=== PATIENT | female | born 1945 | race Caucasian/White ===

== ENCOUNTER 2019-04-24 19:24 | Inpatient (IN) | payer OTHER ==
[~2019-04-24] VITALS: Ht 175.3 cm; Wt 60.8 kg
[2019-04-24] MEDS ORDERED: ALLEGRA ALLERG180 MG PO (22:54)
[2019-04-25 04:06] VITALS: BP 152/85
--- NOTE | 2019-04-25 05:46 | NUR ---
ARRIVED IN FACILITY @ 1900, TRANSFERRED TO [facility]. VS 152/85 88 18 99.1 95% 5'9" WIEIGH 144.6 POUNDS. FSBS 355 @ 1999, FSBS 266 @ 0300, 30 u OF LANTUS PROVIDED. FSBS 187 @ 0430. L BKA AND PROTHETIC DEVICE IN PLACE. R LOWER EXTREMITY HAS A LEG BRACE AND R FOOT HAS A LESION 1CM X 1 CM COVERED WITH A DRESSING. REPORTS PHANTOM PAIN IN THE LEFT LOWER EXTREMITY. RIGHT TOE NAIL IS MISSHAPEN. R FOOT IS CONTRACTED. PT AND OT CONSULT ENTERED. ORIENTED TO SELF ONLY. CONFUSED AND FORGETFUL, SHORT TERM MEMORY ABSENT. HAS DIFFICULTY CONSTRUCTING A SENTENCE. FLAT AFFECT AND SAD COUNTENANCE NOTED. INCONTINENT OF BLADDER. NO BM SINCE ARRIVAL. PT REPORTS THAT SHE CAN AMBULATE WITH A WALKER. SHE DOES NOT APPEAR TO HAVE ANY MORE STANDING ABILITY EXCEPT TO BEAR PARTIAL WEIGHT TO TRANSFER X 1 OR X 2 ASSIST. BED IN LOW POSITION, BED ALARM SET, WILL CONTINUE TO MONITOR Q 12 MINUTES FOR PATIENT SAFETY.
[2019-04-25 06:01] LABS: CALCIUM 8.9 mg/dL (8.5-10.1); CREATININE 1.8 mg/dL (0.6-1.0); POTASSIUM 3.8 mmol/L (3.5-5.1)
[2019-04-25 07:23] VITALS: BP 151/83
--- NOTE | 2019-04-25 09:16 | NUR ---
RD consult received for pt with dm, no dentures, no teeth, and possible wt loss. Also has right foot wound, and left BKA-wound care to see. Pt with confused responses, unable to answer questions. Breakfast meal tray observed and pt ate 100% of large meal and all of liquids. On mech altered ground diet-will also add carb control as BG 266. Unsure of any wt changes, appears well nourished. Need to weigh each week with consistency of prostetic on or off. On vitamin C and MVI supplementation. Low nutrition risk
--- NOTE | 2019-04-25 13:30 | NUR ---
0710: Report rec from noc shift, care assumed.
--- NOTE | 2019-04-25 14:46 | NUR ---
07: report rec from noc shift, care assumed. [id number]: Transfers from bed to w/c with 2 staff, prosthesis in place to Lt lower leg, brace intact to Rt ankle.foot. Oriented to name only, occasionally recalls events and of living in LTC. Minimal self propel noted while in w/c, assisted with mobilization. Refused a.m. meal, blood glucose 179. Takes meds whole w/o difficulty. 1200: BUN 50, Creat.1.8, results called to Dr. Santana by Dr. Haley. New orders rec. 1315: Vascular Access Team notified for need for IV start. 1320: #22 gauge initiated to Rt hand with 1 stick by vascular RN. Pt michelle well, cooperative with procedure. 1400: NS initiated to Rt hand IV site, rate @ 250ml/hr via pump over 2 hrs. Pt assisted to recliner in common area for comfort and close observation. PO water 260cc given to pt, po fluids encouraged.
[2019-04-25 20:23] VITALS: BP 96/68
--- NOTE | 2019-04-25 23:00 | NUR ---
Care assumed of patient at 1915: Patient seated in day room at start of shift. Patient impulsive and attempting to transfer self from w/c to dining room chair independently. Chair alarm in place. Patient alert and oriented to person, confusion and forgetfulness noted. Patient has prosthesis to left lower extremity and brace to right lower extremity. Patient assisted with max assist x2 for transfers for safety. Patient ate 100% snack. Patient having difficulty focusing and having a conversation. Disorganized thoughts. Patient provided HS medication. Patient educated on HS medication several times while showing her each pill. Patient easily forgot and would ask over and over again. Patient then stated that she needed to speak with her before taking the medication. Patient kept pointing to the door saying he would be walking in the window any minute. Patient re-orientated to current time and location. Patient did accept her HS insulin dose but declined all other medications. Patient has involuntary movements noted to her head and neck. Unknown if she is restless or if they are unintentional. Denies pain or discomfort at this time. Patient does appear sad and flat. Patient assisted to bed where she sat in bed and read for a few minutes. Patient fell asleep while reading and has been resting quietly since.
[2019-04-26 05:42] LABS: ALBUMIN 2.8 g/dL (3.4-5.0); CALCIUM 8.8 mg/dL (8.5-10.1); CREATININE 1.6 mg/dL (0.6-1.0); PHOSPHORUS 4.4 mg/dL (2.5-4.9); POTASSIUM 4.2 mmol/L (3.5-5.1)
[2019-04-26 09:05] VITALS: BP 120/67
--- NOTE | 2019-04-26 10:32 | H ---
[facility] [place] [address] HISTORY AND PHYSICAL Name: DARLING MAYERS Room #: 522B-B ADM IN M.R.#: [id number] Admission: 04/24/19 ������������������ Attend Phys: Twin Haley DO Discharge: ������������������ Date of : 47 Report #: [id number] THIS REPORT FOR: //name// CC: Twin Haley [facility] physician/PCP DATE OF SERVICE: 04/25/2019 INPATIENT PSYCHIATRIC EVALUATION ATTENDING PHYSICIAN: Twin Haley DO TRANSPORTATION AIDE: Susy Burgos APRN, the hospitalist service. REASON FOR ADMISSION: Reported confusion, agitation, perhaps taking some swings at staff at the [facility]. SOURCES OF INFORMATION: Interview with the patient and interview with her daughter, Yanet, and family friend, Bharathi. Chart reviewed. HISTORY OF PRESENT ILLNESS: This is a 73-year-old female who is fairly disabled. She has a left-sided prosthesis. She has had a heart attack. She has had difficult to control diabetes. The patient was a direct admit from the [facility], which is in [place]. There was some information from her [place] [facility] that she over the last couple of days had been agitated, confused, difficult to care for and they had ruled out urinary tract infections, so there was a concern of an underlying dementia and obtaining behavioral control for that. Thus, she is here. 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 She lives at [facility] with her there in assisted living. They have been there for some time. She reported to the medical language specialist she was frightened by the weather and felt restless. ALLERGIES: Her allergies are numerous, mainly ANTIBIOTICS, AMOXICILLIN, CIPRO, CLAVULANIC ACID, ERYTHROMYCIN, EZETIMIBE, FENOFIBRATE, LEVOFLOXACIN, PRAVASTATIN, SIMVASTATIN, HMG-COA REDUCTASE INHIBITORS, WHICH WOULD INCLUDE ALL OTHER STATINS AND TETRACYCLINE. MEDICAL HISTORY: Includes a heart attack, I believe she has had a stent placement. She also has an AICD, but I do not believe a pacemaker. REVIEW OF SYSTEMS: From the hospitalist's: CONSTITUTIONAL: Denies. RESPIRATORY: Denies. CARDIOVASCULAR: Denies. GASTROINTESTINAL: Denies. [address] [address] HISTORY AND PHYSICAL Name: DARLING MAYERS Room #: 522B-B ADM IN M.R.#: [id number] Admission: 04/24/19 ������������������ Attend Phys: Twin Haley DO Discharge: ������������������ Date of : 47 Report #: [id number] GENITOURINARY: Denies. MUSCULOSKELETAL: Denies. SKIN: Denies. NEUROPSYCH: As above. Otherwise, negative on 10-point review of systems. Significant findings were 1+ dorsalis pedis pulse on the right. She has had a left BKA. Otherwise normal physical exam. Her medical problems include diabetes mellitus type 2; hyperlipidemia; hypertension; CKD stage 3; vitamin D deficiency; chronic pain syndrome, on Ultram and Neurontin; left BKA, status post prosthesis due to complications of peripheral vascular disease from her diabetes. She is on peptic prophylaxis. MEDICATIONS: While in the hospital; insulin glargine 30 units subcutaneous at bedtime; ezetimibe 10 mg p.o. at bedtime; senna-S 2 tabs p.o. b.i.d.; multivitamin p.o. daily; loratadine 10 mg p.o. daily; lisinopril 10 mg p.o. daily; gabapentin 100 mg p.o. at 9:00, 3:00 and 9:00 p.m.; duloxetine 60 mg p.o. daily; fish oil 1000 mg 3 times a day with meals; bupropion 150 mg p.o. daily; aspirin 81 mg p.o. daily; vitamin C 500 mg p.o. daily; insulin, which is 7 units a.c. She had a blood sugar of 60 right before lunch today; so at the moment, I am not sure of the hospitalist instructions to nurse about that. She is on house PRNs, tramadol 50 mg p.o. q. 6 p.r.n. and I put her on scheduled Tylenol 650 t.i.d. SOCIAL HISTORY: She denies smoking, alcohol or illicit drugs. VITAL SIGNS: Today; temperature 36.7, pulse 80, respirations 14, BP 151/83. DIAGNOSTIC DATA: She had an EKG done from the [place] [facility] showed atrial fibrillation, old inferior infarct. She had a ventricular rate of 86, QRS of 76, QTC of 459. LABORATORY DATA: The labs I have from [place] [facility] are as follows: Urinalysis was positive on 04/16, they started IM Rocephin. On 04/22; sodium 138, potassium 5.2, chloride 101, bicarbonate 24.6, anion gap 18, osmolality 290, calcium 8.9, glucose 290, BUN 48, creatinine 1.7, protein 5.6, albumin 3.5, globulin 2.1, ____, alkaline phosphatase 186, ALT 42, AST 30, total bilirubin 0.2. CBC: White count 9.6, H and H 10.7 and 32.5, platelet count 339. She did have absolute neutrophil count, which was high at 7.30. I found some notes on 04/24, she continues to be delirious, confused with hallucinations and incoherent verbalizations. She appeared to have worsened. Earlier on 04/24, she is very disorganized. She was pulling wastepaper ____ from basket before. Apparently, she pulled everything out of her closet and stuffed it in the basket. She had disorganized thinking. Resident was combative and refusing cares over the last two days in the morning, so it looks like that it dates back to early on the morning of 04/24. [facility] [address] [place] [address] HISTORY AND PHYSICAL Name: DARLING MAYERS Room #: [facility] ADM IN M.R.#: [id number] Admission: 04/24/19 ������������������ Attend Phys: Twin Haley DO Discharge: ������������������ Date of : 47 Report #: [id number] MENTAL STATUS EXAMINATION: This is a well-developed, slightly disheveled female appearing only stated age. Attention limited. Concentration limited. Speech normal rate. She was not oriented to day or date, but knew month or time after some prompting. No psychomotor agitation. No psychomotor retardation. Mood and affect congruent and euthymic. Denied SI or HI. Denied hopelessness, helplessness. Thought process is linear and goal directed. Memory not formally tested, but known to be impaired. Insight limited. Judgment fair to limited. Fund of knowledge below baseline at this point. FORMULATION: A 73-year-old female residing in an assisted living facility with suspected delirium on dementia, perhaps residual from urinary tract infection. PLAN: Continue medications as above. I think that it may not be a bad idea to get her on some scheduled Haldol early on and I would like to see how she does in the next few days, so we do not jump to overprescribing those psychotropic medications. Time spent on interview, review of records, coordination of care is at least 60 minutes. I did have the geriatric social work professor and authorized healthcare DPOA by the patient, her daughter, Yanet can function and that will likely need to be enacted. ESTIMATED LENGTH OF STAY: 10-14 days. STRENGTHS: Insured, has supportive family. WEAKNESSES: Multiple morbidities, advancing age, likely neurodegenerative disorder. ��������������������������������������������� <ELECTRONICALLY SIGNED> ���������������������������������������� By: Twin Haley DO ��������������������������������������������� 04/26/19 1032 [id number] Twin Haley DO /nt
--- NOTE | 2019-04-26 19:15 | NUR ---
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 PATIENT DISRUPTIVE AND TRYING TO MAKE ANNOUNCEMENTS AT BEGINNING OF MORNING GROUP. AROUND LUNCH PATIENT MORE WITHDRAWN. CARRYING AROUND AND HOLDING PROSTHESIS. PLACING PROSTHESIS ON TABLES AND LEAVING ROOM. PROSTHESIS PLACED IN LOCKER. PATIENT ACCEPTING MEDS AT DINNER. ATE 60% OF MEAL. REFUSED LUNCH TRAY. REMAINS CONFUSED. FALL PRECAUTIONS IN PLACE.
[2019-04-26 19:38] VITALS: BP 124/71
--- NOTE | 2019-04-26 22:28 | NUR ---
Care assumed of patient at 1915: Patient seated in day room at start of shift. Patient alert and oriented to person. Patient restless and irritable. Patient having rambling speech. Nonsensical speech at times. Has a suspicious, perplexed look. Difficulty following simple one step directions. Blood sugar 65 at start of shift. Patient showing no s/s of hypoglycemia. Patient provided orange juice and helen crackers with peanut butter. 30 minutes later, blood sugar 154. Patient requires max assist to dependent care x2 for transfers and toileting needs. Incontinent of bowel and bladder. Patient changed, mirian care provided, barrier cream applied. Patient provided one medication at a time during med pass. One medication presented, education provided, then patient took the medication. Patient becomes confused and paranoid when all medication are presented at once. Patient assisted to bed and was provided her book to read per her request. Patient fell asleep while reading and has been resting quietly.
[2019-04-27 09:31] VITALS: BP 142/74
[2019-04-27 11:35] VITALS: BP 142/74
--- NOTE | 2019-04-27 16:50 | NUR ---
PATIENT INAPPROPRIATELY INTERACTING WITH OTHER PATIENTS AND STAFF THIS MORNING. ATTEMPTING TO TELL STAFF WHAT THEY NEED TO DO, INSERTING SELF INTO CONVERSATION BETWEEN OTHER PATIENTS AND STAFF. APPROACHING OTHER PATIENTS AND TELLING THEM WHAT THEY NEED TO DO. EXHIBITING SIGNS OF VISUAL HALLUCINATIONS BY POINTING AND TALKING TO THINGS IN THE AIR, DENIES HALLUCINATIONS. OFTEN TALKING IN CIRCLES, UNABLE TO FOCUS ON ONE SUBJECT OR TASK. TAKING ITEMS FRO ANOTHER PATIENT AT BREAKFAST SUCH PILLOW AND BLANKET FROM CHAIR THAT OTHER PATIENT WAS USING. UNABLE TO REDIRECT WHERE SHE WAS AND HER ROLE. REFUSING MEDS UNTIL SHE SPOKE WITH HER RABIA OVER THE PHONE. AFTER LUNCH AND GROUPS PATIENT MORE COOPERATIVE. CONTINUES TO APPROACH OTHER PATIENTS AND INSTRUCT THEM TO WHAT THEY SHOULD BE DOING. MORE RE-DIRECTABLE AFTER GROUPS THIS AFTERNOON. PATIENT SON CALLED AND STATED THAT HE WOULD BE VISITING. DID NOT SHOW DURING VISITING HOURS. PATIENT VISIBLY SADDENED. NO FURTHER INAPPROPRIATE BEHAVIORS NOTED AT THIS TIME.
[2019-04-27 19:10] VITALS: BP 111/47
[2019-04-28 01:01] VITALS: BP 111/47
--- NOTE | 2019-04-28 04:49 | NUR ---
PT REMAINS CONFUSED AND INVASIVE TOWARD OTHER PATIENTS. REDIRECTABLE. AFTER EVENING SNACKS WENT TO ROOM. TOOK HS MEDS WITH GENTLE ENCOURAGEMENT. SLEPT WELL THROUGH THE NIGHT W/O INCIDENT.
[2019-04-28 07:30] VITALS: BP 128/69
[2019-04-28 08:09] VITALS: BP 128/69
--- NOTE | 2019-04-28 08:30 | NUR ---
PT SITTING WITH OTHER RESIDENTS HAVING CONFERSATIONS. PT TOOK MEDS WITHOUT ANY RESISTANCE. PT LUNGS CLEAR. PT DENIES ANY PAIN AT THIS TIME. PT EATING BREAKFAST.
--- NOTE | 2019-04-28 11:03 | NUR ---
WOUND CONSULT; THE PATIENT STATES SHE HAS HAD THIS WOUND SINCE 2001. THE PATIENT IS LUCID. NO S/S OF INFECTION, SACAT SEROUS DARAINAGE NOTED ON DRESSING. THE PATIENT USES AN OLD ORTHOTIC BOOT, CANNOT DETERMINE EFFICACY OF THIS. RECOMMENDATION; CLEANSE WITH NS/ OR WOUND CLEANSER, APPLY A FOAM DRESSING M/W/F PRN DISCUSSED WITH FABIO
--- NOTE | 2019-04-28 14:17 | NUR ---
HELPED PT TO BATHROOM. PT DIDN'T HAVE HER PROSTHETIC LEG. PT VERY SPASTIC WITH HER ACTIONS. PT HAD INCON. BRIEF AND VOIDED ALSO. DRESSED WOUND TO RT OUTER FOOT, APPEARS TO BE AN ULCER. PT WANTED TO TALK TO SOMEONE IN DINNING ROOM DURING DRESSING CHANGE. TOOK OFF PERSONAL SHOE AND PUT IN ROOM.
--- NOTE | 2019-04-28 15:01 | NUR ---
PT IN ROOM WITH GROUP. PT SITTING BACK AWAY FROM GROUP.
--- NOTE | 2019-04-28 16:07 | NUR ---
CIARRA met with family concerning memory care placement. Pt daughter Yanet mention that she would like her mother to continue there if the [facility] has a memory care unit. SW will contact the [facility] to see if memory care is option. CIARRA will follow-up with the family, and pt.
[2019-04-28 19:45] VITALS: BP 160/82
--- NOTE | 2019-04-28 22:56 | NUR ---
PATIENT IS COOPERATIVE TONITE. SHE HAS STAYED IN HER ROOM TO HERSELF. SHE HAS FLAT AFFECT. PHYSICAL ASSESSMENT DONE. SHE HAS L BKA THAT IS INTACT. SHE HAS THE SLEEVE OFF AND SAYS SHE DOES NOT WEAR IT ALL THE TIME. HER PROSTHESIS WAS PUT UP IN HER LOCKER D/T SHE WAS HOLDING IT IN HER ARMS IN THE DAYROOM INSTEAD OF WEARING IT. PATIENT'S RIGHT FOOT IS DEFORMED AND HAS AN ULCER WOUND ON IT THAT IS BEING TREATED BY WOUND CARE NURSE AND DRESSING CHANGES ARE MWF AND PRN. THERE IS NO DRAINAGE COMING FROM THE DRESSING THAT WAS CHANGED EARLIER TODAY. PATIENT IS A/[address]. HER GLUCOSE WAS 267 TONITE AND LANTUS 30 UNITS GIVEN TO PATIENT . PATIENT DID HAVE A SF SNACK AT HS. PATIENT DENIES PAIN. SHE DOES APPEAR A LITTLE PARANOID AND WAS RELUCTANT TO TAKE MEDS UNTIL SHE FELT COMFORTABLE THAT SHE WAS GETTING THE RIGHT ONES. PATIENT HAS BRIEF ON AND IS INCONTINENT AT NIGHT. BED ALARM ON AND BED IN LOW POSITION. WILL CONTINUE TO MONITOR.
--- NOTE | 2019-04-29 08:00 | NUR ---
PT NEEDED ASSISTANCE GETTING OUT OF BED. PT HAS RT FOOT DEFORMED AND BEARS WEIGHT ON THE SIDE. SMALL ULCER TO RT LATERAL SIDE OF FOOT. PT HAS PROSTHETIC TO LEFT BELOW KNEE. PT HAS BRUISING TO LATERAL SIDE OF LEFT STUMP. PT ORIENTED TO SELF. PT DENIES ANY PAIN AT THIS TIME. PT UP WITH ASSISTANCE X1-2 PERSON.
--- NOTE | 2019-04-29 13:04 | NUR ---
PT STATED SHE STILL FEELS DIZZY AND DIDN'T KNOW IF ITS THE MEDICATION. PT ALSO STATED SHE KNOWS SHE NEEDS SOMETHING FOR ANXIETY, BUT NOT TAKE THE MEDICATION SO FREQUENTLY.
--- NOTE | 2019-04-29 13:26 | EKG ---
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: DENISA : 1945 Requested By: Twin Haley Order Number: [id number] MD: Juan Bowen Measurements Intervals [place] Rate: 92 P: 45 IN: 167 QRS: -18 QRSD: 90 T: 31 QT: 353 QTc: 437 Interpretive Statements Sinus rhythm Borderline left axis deviation Abnormal R-wave progression, early transition No previous ECG available for comparison Electronically Signed On 04-29-2019 13:26:12 CDT by Juan Bowen [email or web address] ��������������������������������������������� <ELECTRONICALLY SIGNED> ���������������������������������������� By: Juan Bowen MD ��������������������������������������������� 04/29/19 1326 1146 1146 Juan Bowen MD /AMY
[2019-04-29 19:17] VITALS: BP 146/84
[2019-04-29 20:06] LABS: SYPHILIS AB Negative (Negative)
[2019-04-30 00:47] VITALS: BP 146/84
--- NOTE | 2019-04-30 01:01 | NUR ---
PATIENT WAS UP IN THE DAYROOM WHEN THIS NURSE CAME ON SHIFT AT 1900. HE STATES HE NEEDS SOMETHING FOR PAIN. I TOLD HIM I WOULD GET HIM SOMETHING SOON IT WAS DUE. HE HAS BEEN KEEPING MEDICATED ALL DAY FOR PAIN. HE STATES HIS LOWER BACK IS AT A 9/10 WITH PAIN. HS MEDS INCLUDING LYRICA WAS GIVEN TO PATIENT. EARLIER IN THE DAY WHEN HE HAD THIS HE TOLD THE DAY NURSE THAT THIS "SNOWED HIM OVER." TONITE HE IS COMPLAINING THAT HE DOESN'T THINK THIS WILL DO ANYTHING FOR HIM. I ENCOURAGED HIM TO TAKE IT AND LET HIM KNOW THAT IT WORKED WELL FOR HIM EARLIER IN THE DAY. HE JUST WANTED TO ARGUE. HE TOOK THE MED AND THEN SAID 30 MINUTES LATER THAT HE WAS IN INTENSE PAIN AND NEEDED SOMETHING ELSE. HE WANTED HIS HYDROCODONE. I TOLD HIM HE NEEDED TO WAIT 45 MINUTES TILL HE CAN HAVE ONE. HE WENT TO HIS ROOM AND CAME OUT 45 MINUTES LATER AND SAT DOWN TO WATCH THE [employer] GAME. HE ASKED FOR THE HYDROCODONE AND ONE WAS GIVEN TO HIM. HE CONTINUED TO WATCH THE GAME AND WENT TO BED. AN HOUR LATER PATIENT CAME OUT AND SAID HE WAS STILL HURTING AND HE WANTED TYLENOL. TYLENOL 650MG GIVEN TO PATIENT AND 5 MINUTES LATER HE WAS SAYING HIS PAIN WAS GONE. HE WAS HAPPY AND LAUGHING AND WALKING AROUND WITH HIS WALKER. HE SITS IN HIS ROOM AWHILE AND NOW IS SITTING OUT IN THE DAYROOM AGAIN. PATIENT IS EXCITED ABOUT HIS SON BRINGING IN A "SUIT" FOR HIM WHEN HE GOES TO COURT ON THE . PATIENT HAS NOT HAD A BM THIS SHIFT BUT HAS BEEN NOTIFIED TO LET US KNOW WHEN HE HAS ONE SO WE CAN COLLECT THE SAMPLE. A HAT PLACED IN BATHROOM TO USE. PATIENT VOICED UNDERSTANDING. PATIENT CALLED AND SPOKE WITH HIS SON FOR A FEW MINUTES EARLIER IN THE EVENING. PATIENT DENIES PAIN AT THIS TIME.
--- NOTE | 2019-04-30 01:39 | NUR ---
PATIENT WAS UP IN [facility] AND WAS STAYING CLOSE TO THE NURSE'S STATION. I VISITED WITH HER FOR AWHILE AND DID HER PHYSICAL ASSESSMENT. HER DRESSING ON HER RIGHT MALFORMED FOOT IS DRY AND IN PLACE. SHE HAS A NONSLIP SOCK ON THAT FOOT. I LET PATIENT KNOW THAT LABORER MINE WAS GOING TO BE COMING ONE AFTERNOON SOON TO MEASURE HER LEFT BKA STUMP FOR A NEW SLEEVE. SHE STARTED TO CRY AND SAID SHE WAS SO HAPPY FOR THIS. PATIENT THEN STATES THAT SHE IS SLEEPY AND WAS GOING TO BED SOON. SHE DID HOWEVER, DECIDE TO WHEEL TO THE DAYROOM FOR A FEW MINUTES MANY PATIENT'S WERE THERE VISITING AND WATCHING THE [employer] GAME. PATIENT'S HS GLUCOSE WAS 126. LANTUS 30U GIVEN. GAVE PATIENT A REGULAR SNACK AT HS SINCE GLUCOSE WAS 126 AND DIDN'T WANT TO DROP THRU NIGHT TOO LOW. ASSISTED PATIENT IN GETTING DRESSED AND READY FOR BED. SHE HAS BEEN COOPERATIVE AND TAKEN ALL HER PILLS. SHE STATES SHE HAS HAD A GOOD DAY. PATIENT IN NEW DRY BRIEFS AND GOWN. SLEEPING AT THIS TIME. BED IN LOW POSITION AND BED ALARM ON. CONTINUING TO MONITOR AND ASSESS FOR ANY S/S OF HYPOGLYCEMIA. NO SIGNS AT THIS POINT.
[2019-04-30 06:03] LABS: HEMATOCRIT 36.4 % (37.0-47.0); HEMOGLOBIN 11.6 gm/dL (12.0-15.0); MCH 30.8 pg (26.0-34.0); MCV 96.3 fL (80.0-100.0); RBC 3.78 mil/uL (4.20-5.00); RDW 13.5 % (10.5-14.5); WBC 8.4 thou/uL (4.0-11.0)
[2019-04-30 06:33] LABS: CALCIUM 9.2 mg/dL (8.5-10.1); CREATININE 1.6 mg/dL (0.6-1.0); MAGNESIUM 2.1 mg/dL (1.8-2.4); POTASSIUM 4.5 mmol/L (3.5-5.1)
[2019-04-30 09:29] VITALS: BP 142/80
--- NOTE | 2019-04-30 12:45 | NUR ---
WOUND CARE FOLLOW UP; THE RIGHT LATERAL FOOT WOUND REMAINS STABLE TODAY. THE WOUND HAS BEEN THERE YEARS. PODAITRY HAS BEEN CALLED. RECOMMENDATION; CONTINUE CURRENT PLAN
[2019-04-30 20:20] VITALS: BP 137/70
--- NOTE | 2019-04-30 23:38 | NUR ---
Care assumed of patient at 1915: Patient seated in w/c in the day room at a table at start of shift. Patient has a blanket which she keeps folding and laying out on the table. Patient alert and oriented to person and place. Patient disoriented on current time and situation. Patient states that she is at the hospital to help a study regarding the blanket that she has on the table. Patient delusional regarding the purpose of the blanket, the blue stripes on it, meeting with a team regarding this blanket. However, patient pleasant and cooperative. Patient denies any pain or discomfort. Denies SI/HI/AH/VH. No s/s of patient having hallucinations observed or reported at this time. Patient incontinent of bladder. Patient weight bearing limited. Max assist x2 provided for transfer from w/c to bed. Patient took HS medication whole without difficulty. Patient declined HS snack despite multiple attempts by 2 different staff members. Patient did appear to have blunted affect and a perplexed look when assessing her. Patient did speak about her and fixated more on the blanket. Required several re-directions but was compliant. Patient has been resting quietly since she has gone to bed.
[2019-05-01 07:30] VITALS: BP 159/83
[2019-05-01 08:28] VITALS: BP 159/83
--- NOTE | 2019-05-01 08:30 | NUR ---
PT TOOK MEDS FOR THIS NURSE THIS AM. PT DENIES ANY PAIN AT THIS TIME. PT IS MAX ASSIST X2 FOR TRANSFERS. PT HAS ULCER TO RT FOOT WITH DRESSING INTACT. LUNGS CLEAR. HAS LEFT BELOW KNEE AMP.
--- NOTE | 2019-05-01 10:48 | NUR ---
Nutrition folllowup: Pt continues on mechanically altered ground diet, carb controlled, PO intake variable. Ate 100% of 2 meals/snacks yesterday but refused dinner. Ate 50% of breakfast this am. Pt feels her appetite is good. Voices no food preferences to RD and states diet consistency is fine. BG 96-295. On SSI, lantus. Also MVI, ascorbic acid. L BKA and Right food wound which as been present for years evaluated by wound care. Podiatry consulted. Low nutrition risk.
--- NOTE | 2019-05-01 12:53 | NUR ---
Date of Admission: 04/24/19 Date of Activity Therapy Assessment: 04/27/19 Activity Goal: Increase socialization Initial Goal: 1 Group activity/day Weekly progress towards goal: Achieving current goals Group participation level: Varies Behaviors observed: Patient is achieving current goal of 1 group per day. Focus has improved over the course of the week. Participation level varies based on energy level. Patient is able to independently modify activities to ability. Social boundaries also improved. Plan: No change towards goal
--- NOTE | 2019-05-01 15:30 | NUR ---
PT SITTING WITH GROUP. PT FINISHED WITH GROUP AND TAKEN INTO SHOWER. PT ASSISTED WITH BATHING. DRESSING TO RT FOOT CHANGED AFTER SHOWER.
[2019-05-01 19:35] VITALS: BP 162/95
--- NOTE | 2019-05-01 20:13 | NUR ---
ASSUMED CARE @ 19:15, IN DAY ROOM IN W/C. ASKED TO BE TRANSFERRED TO COUCH. X2 ASSIST WITH GAIT BELT TO TRANSFER. PT SLID HERSELF ONTO THE FLOOR. NO INJURIES NOTED OR REPORTED. RETURNED TO W/C. UNABLE TO ASSESS PSYCHOLOGICAL CONDITION D/T DEMENTIA. HRRR, LUNGS CTA, ABD NORMOACTIVE. DOES NOT KNOW IF SHE HAD A BM TODAY. WILL CONTINUE TO MONITOR Q 12 MINUTES FOR PATIENT SAFETY.
--- NOTE | 2019-05-02 00:25 | NUR ---
TOILETED AND TRANSFERRED TO BED. HAD A LARGE FIRM BM. ASLEEP AT THIS WRITING. PT NOT AWARE OF HER LIMITATIONS, AND TRIES TO TRANSFER HERSELF FROM CHAIR OR BED TO THE FLOOR AND HAS HISTORICALY CRAWLED ON THE FLOOR A MODE OF AMBULATION. WILL CONTINUE TO MONITOR.
[2019-05-02 05:29] LABS: HEMATOCRIT 38.8 % (37.0-47.0); HEMOGLOBIN 12.5 gm/dL (12.0-15.0); MCH 30.7 pg (26.0-34.0); MCHC 32.2 g/dL (28.0-37.0); MCV 95.4 fL (80.0-100.0); RBC 4.07 mil/uL (4.20-5.00); RDW 13.6 % (10.5-14.5); WBC 9.9 thou/uL (4.0-11.0)
[2019-05-02 05:36] LABS: CALCIUM 9.7 mg/dL (8.5-10.1); CREATININE 1.5 mg/dL (0.6-1.0); POTASSIUM 4.6 mmol/L (3.5-5.1)
--- NOTE | 2019-05-02 06:17 | NUR ---
SLEPT 8.4 HOURS.
[2019-05-02 09:08] VITALS: BP 149/78
--- NOTE | 2019-05-02 09:42 | NUR ---
ASSUMED CARE AT 0700 TODAY. PT. UP IN W/C ON THE UNIT FOR BREAKFAST. SHE TOOK HER MEDICATIONS WITHOUT DIFFICULTY. SHE HAS NOT MADE ANY DELUSIONAL STATEMENTS OF THIS WRITING. AFTER BREAKFAST SHE INFORMED STAFF OF NEED TO UTILIZE THE RESTROOM. HOWEVER, WHEN SHE WAS TAKEN TO HER ROOM, IT WAS NOTED SHE ALREADY HAD BEEN INCONTINENT IN HER BRIEFS. HER BRIEFS AND PANTS WERE CHANGED. SHE WENT TO MORNING GROUPS.
[2019-05-02 09:53] VITALS: BP 149/78
[2019-05-02 19:49] VITALS: BP 122/67
--- NOTE | 2019-05-02 21:53 | NUR ---
PT IN DAY ROOM TALING WITH PEERS, PT HAD FSBS 68, GIVEN HS SNACK AND INCREASED TO 103. PT COMPLIANT WITH MEDS AND INSULIN. PT INCONTINENT IN W/C. PT IS A TOTAL LIFT/ARTEM. PT HAD ON R SHOE, LBKA. PT HAS BANDAID ON R FOOT ULCER. PT HAS FLAT AFFECT GOOD EYE CONTACT. STATED SHE HAD A RELAXING DAY.
[2019-05-03 07:46] VITALS: BP 155/87
--- NOTE | 2019-05-03 09:35 | NUR ---
Up in the dayroom, she is in wheel chair, and has head down sleeping, she is arousable and able to speak, she stated she did not sleep well, she is alert and oriented x 2, to name and place. She denies SI/HI and AVH, she ate fair, she is compliant with meal and meds. Continue to monitor for behaviors and safety.
--- NOTE | 2019-05-03 13:03 | NUR ---
Sent updates to [employer] per family request
[2019-05-03 19:48] VITALS: BP 163/92
--- NOTE | 2019-05-04 00:08 | NUR ---
Assumed care of pt. at 1910. Reported that she had not eaten dinner, since she was asleep in bed and refused. She awakened for assessment, A/O x name and BD. Said also it was june, she was at [place], was from [place]. She has dressing right lateral side foot intact. No c.o. pain. BM today. She consumed peanut butter 3 tubs, 2 saltine crackers, sips of milk with assist. Blood sugar = 119. Lantus 22 units given. She wanted to get out of bed and assisted to sit in dining area until tired. At 2330 she was tired enough she said to go to bed which she did. Incontinent of urine. Bed alarm activated and chair alarm when in chair.
--- NOTE | 2019-05-04 06:33 | NUR ---
Pt. this nite, restless in her bed, sitting up with face downward at times asleep or not asleep. Also, she rolled side to side in the bed restless at times. When she was supine she slept well. She removed her gown off and on and tore the paper qiana in pieces. Her eyes were partly closed while she was restless. She slept a total of 6.6 hour tonite.
[2019-05-04 07:30] VITALS: BP 165/82
[2019-05-04 07:38] VITALS: BP 165/82
--- NOTE | 2019-05-04 08:36 | NUR ---
PT APPEARS SLEEPY THIS AM. PT SITTING AT TABLE IN DINNING ROOM. PT LUNGS CLEAR. PT IN W/C WITH ALARM. PT ABLE TO WHEEL SELF AROUND. PT DENIES ANY PAIN. PT HAS DRESSING TO RT FOOT. PT TAKING MEDS WITHOUT ANY ISSUES.
--- NOTE | 2019-05-04 11:04 | NUR ---
WOUND CARE F/U; THE RIGHT LAT FOOT WAS VISUALIZED. SMALL AMOUNT OF SEROSANGINOUS DRAINAGE. THE CHARCOT LIKE FOOT WOUND IS NO PROMINENTLY RAISED TODAY. RECOMMEDNATIONS; CONTINUE CURRENT DRESSING ORDERED WITH A BOARDERED FOAM.
--- NOTE | 2019-05-04 12:30 | NUR ---
ASSISTED PT WITH EATING FOR LUNCH. PT ATE 50% OF LUNCH WITH NURSE ASSISTANCE. PT ABLE TO TERRAZZO TILE MAKER DRINK CUP ON OWN. PT NOT ACTIVE TODAY.
[2019-05-04 19:29] VITALS: BP 143/84
[2019-05-04 23:05] VITALS: BP 143/84
--- NOTE | 2019-05-05 03:56 | NUR ---
PT DROWSY IN CHAIR IN DAY AREA. COOPERATIVE WITH ASSESSMENT AND TOOK HS MEDS PRESCRIBED. RECEIVED GLARGINE AT HS 22u. SQ. SLEPT EARLY IN SHIFT, BUT BECAME RESTLESS. INCONTINENT OF URINE AND SMALL AMT OF STOOL. CLEANED AND FRESH LINEN AND GOWN PROVIDED. RESTING QUIETLY AT THIS TIME.
[2019-05-05 07:54] VITALS: BP 127/66
--- NOTE | 2019-05-05 09:48 | NUR ---
0715: Report rec from noc shift, care assumed. [id number]: Transferred from bed to BSC, pt incont. of urine and bowel, mirian-care given, transferred to w/c with assist of staff x2-3, pt non weight bearing on Rt leg, Lt leg BKA w/o prothesis due to skin impairment. Pt oriented to name only, minimal words spoken. Meds given in applesauce due to pt inability to maintain concentration on task. Attended therapy group, observed pt sleeping during group. Cooperative with staff, mood is calm.
--- NOTE | 2019-05-05 13:19 | HC ---
[facility] [place] [address] [place] [address] CONSULTATION Name: DARLING MAYERS Room #: 528B-B ADM IN M.R.#: [id number] Admission: 04/24/19 ������������������ Attend Phys: Twin Haley DO Discharge: ������������������ Date of : 47 Report #: [id number] THIS REPORT FOR: //name// CC: Twin Haley FAM physician/PCP DATE OF SERVICE: 05/01/2019 ENDOCRINE CONSULTATION NOTE CONSULTING PHYSICIAN: Dr. Osmar Mckeon. REASON FOR CONSULTATION: Uncontrolled type 2 diabetes mellitus. HISTORY OF PRESENT ILLNESS: This is a 73-year-old female patient with a medical background, significant for type 2 diabetes mellitus for many years as well as hypertension and chronic kidney disease. Also, the patient has significant psychiatric background that is noted for depression, anxiety as well as advanced dementia and [facility] for the past week or so. While the patient was interactive and interested to answer my questions, she was not fully informative and just indicated that she has had diabetes mellitus for many years and that she is not aware of any complications that have resulted from her diabetic infliction. She was not sure what kind of insulin or what the dosage of her insulin was. She does not believe that she had experienced much hypoglycemia in the past. She is not aware of CVD whatsoever. REVIEW OF SYSTEMS: CONSTITUTIONAL: Denies fever or chills, but says she is weak and tired. Does not believe that she had lost weight. HEENT: Negative for ear drainage, earache or sinus congestion. PULMONARY: Occasional shortness of breath and cough, but no hemoptysis. CARDIAC: Occasional palpitations, but no chest pain or lower extremity edema. ABDOMEN: Abdominal pain noted for occasional abdominal discomfort and nausea, but no vomiting. NEUROLOGY: Negative for loss of consciousness, headaches or seizure activity. PSYCHIATRIC: Her background is noted for dementia, depression, anxiety. SKIN: Negative for ulceration, rash or discoloration. Otherwise, her review of system is noncontributory other than those mentioned in HPI. PAST MEDICAL HISTORY: 1. Type 2 diabetes mellitus. 2. Hypertension. 3. Chronic kidney disease. [facility] [address] [place] [address] CONSULTATION Name: DARLING MAYERS Room #: 528B-B ADM IN M.R.#: [id number] Admission: 04/24/19 ������������������ Attend Phys: Twin Haley DO Discharge: ������������������ Date of : 47 Report #: [id number] 4. Depression. 5. Anxiety. 6. Peripheral vascular disease, status post left AKA and prosthesis placement. 7. Hyperlipidemia. CURRENT MEDICATIONS: Include Hilda, EZETIMIBE 10 mg, Lantus insulin 30 units q.p.m., Humalog insulin 7 units with meals, acetaminophen p.r.n., aspirin 81 mg daily, bupropion 150 mg daily, Cymbalta 60 mg daily, gabapentin 100 mg t.i.d., lisinopril 10 mg daily, multivitamin daily. ALLERGIES: The patient has noted allergies to AMOXICILLIN, CIPROFIBRATE, CLAVULANIC ACID, ERYTHROMYCIN, EZETIMIBE, FENOFIBRATE, LEVOFLOXACIN, PRAVASTATIN, SIMVASTATIN, STATIN, AND ____ TETRACYCLINE. FAMILY HISTORY: Noncontributory. SOCIAL HISTORY: The patient resided at a care home facility. She denies use of tobacco, alcohol or illicit drugs. PHYSICAL EXAMINATION: GENERAL: Pleasant, elderly female patient who is sitting in her wheelchair. Her head was slumped down, but she was alert and interactive with my questions. She avoided eye contact, did not seem to be in pain or distress. VITAL SIGNS: Blood pressure is 159/83 mmHg, heart rate is 89 beats per minute, respirations 18 per minute, temperature 36.9 degrees. HEENT: Anicteric sclerae. Intact extraocular motions. NECK: Supple, without JVD, carotid bruits or lymphadenopathy. I do not appreciate thyromegaly. CHEST: Noted for moderate air entry bilaterally with limited respiratory effort, scattered rales, but no rhonchi. HEART: Regular rate and rhythm without murmurs or gallops. ABDOMEN: Soft and lax without tenderness or organomegaly. She has active bowel sounds. No guarding is noted. EXTREMITIES: Lower extremity exam is noted for left AKA. Otherwise, no edema. NEUROLOGIC: Awake, alert, largely nonfocal. PSYCHIATRIC: Flat mood and affect, speaks softly, but answers my questions without hesitation. LABORATORY RESULTS: Sodium 140, potassium 4.5, chloride 103, CO2 of 29, anion gap 8, BUN 35, creatinine 1.6, glucose 100, calcium 9.2, phosphorus 4.4, magnesium 2.1, albumin 2.8, EGFR 32. White blood count 8.4, hemoglobin 11.6, hematocrit 36.4, platelets 357. Vitamin B12 747. Vitamin D is 30.9. Blood glucose values have been traced for a while and basically she had a fasting glucose of 96 before breakfast, followed by 326. She had 76 before dinner, followed by 295. [facility] [address] [place] [address] CONSULTATION Name: DARLING MAYERS Room #: 528B-B ADM IN M.R.#: [id number] Admission: 04/24/19 ������������������ Attend Phys: Twin Halye DO Discharge: ������������������ Date of : 46 Report #: [id number] ASSESSMENT AND PLAN: 1. Type 2 diabetes mellitus, uncontrolled. The patient has uncontrolled type 2 diabetes mellitus as per her recorded blood sugar values. Her pattern is noted for low normal pre-meal blood glucose values in conjunction with severe and fast elevations in her blood glucose values postprandially. She is currently on a regimen of Lantus insulin 30 units q.p.m. and Humalog insulin 7 units t.i.d. a.c. in addition to support to the Humalog supplemental scale. Given this pattern, I will cut back her glargine to 22 units q.p.m. while raising her Humalog to 10 units t.i.d. a.c. and maintaining support with the Humalog supplemental scale. I will also continue with blood glucose monitoring a.c. and at bedtime to assist us in adjusting her regimen as needed. 2. Diabetic neuropathy. I will have the patient continue the current Neurontin regimen. 3. Chronic kidney disease. The patient has advanced stage IIIB chronic kidney disease. This will be monitored periodically. 4. Hyperlipidemia. The patient has been noted as having allergies to all STATINS and EZETIMIBE, which limits her options therapeutically. This would probably be considered when she is more clinically stable in the outpatient setting. I certainly appreciate this consultation by Dr. Mckeon. ��������������������������������������������� <ELECTRONICALLY SIGNED> ���������������������������������������� By: Yani Horner MD ��������������������������������������������� 05/05/19 1319 1635 3 MD milagro Gleason
[2019-05-05 14:24] LABS: ABSOLUTE NEUTROPHILS 10.1 thou/uL (1.4-8.2); BASOPHILS 0.5 % (0.0-2.0); EOSINOPHILS 0.6 % (0.0-3.0); HEMATOCRIT 44.3 % (37.0-47.0); HEMOGLOBIN 14.2 gm/dL (12.0-15.0); LYMPHOCYTES 14.6 % (24.0-44.0); MCH 30.4 pg (26.0-34.0); MCV 94.8 fL (80.0-100.0); MONOCYTES 7.8 % (1.0-8.0); PLATELET COUNT 474 thou/uL (150-400); POLYS 76.5 % (36.0-66.0); RBC 4.67 mil/uL (4.20-5.00); RDW 13.8 % (10.5-14.5); WBC 13.2 thou/uL (4.0-11.0)
[2019-05-05 14:31] LABS: CALCIUM 10.2 mg/dL (8.5-10.1); CREATININE 1.6 mg/dL (0.6-1.0); POTASSIUM 4.5 mmol/L (3.5-5.1)
[2019-05-05 16:26] LABS: URINE BILIRUBIN NEGATIVE (Negative); URINE BLOOD 2+ (Negative); URINE CLARITY CLOUDY; URINE COLOR YELLOW; URINE GLUCOSE-RANDOM* NEGATIVE (Negative); URINE KETONES NEGATIVE (Negative); URINE NITRITE-REFLEX NEGATIVE (Negative); URINE PROTEIN (DIPSTICK) 1+ (Negative)
[2019-05-05 16:28] LABS: URINE LEUKOCYTES-REFLEX 3+ (Negative)
[2019-05-05 16:45] LABS: SQUAMOUS 0-3 Few /LPF (0-3); URINE WBC-REFLEX >25 Many /HPF (0-5)
[2019-05-05 16:46] LABS: BACTERIA-REFLEX 1-9 Few /HPF (None Seen); CRYSTALS None Seen /LPF (None Seen); URINE RBC 0-2 Rare /HPF (0-2)
--- NOTE | 2019-05-05 16:56 | NUR ---
SW completed DA-124 document, and sent to [facility].
--- NOTE | 2019-05-05 16:57 | NUR ---
CIARRA and Dr. Haley spoke with pt daughter Yanet concerning her mother been accepted into [facility]. CIARRA mention that her mother have not any behaviors for the last [address] Haley mention that pt will need other referrals sent out to other [facility]. Yanet mention that she would like to speak with the financial administrator again before send other referrals due to to the new information that was given. CIARRA will follow-up with the family.
[2019-05-05 19:42] VITALS: BP 158/85
--- NOTE | 2019-05-05 21:51 | NUR ---
ASSUMED CARE @ 19:15, IN DAY ROOM SITTING IN W/C, DROWSY. RESPONDS TO VOICE AND OPENS EVES AND ANSWERS NAME, BUT LITTLE ELSE. DRINKS WATER THRU A STRAW, TAKES MEDICINE AND EATS YOGART READILY. TRANSFERRED X 2 ASSIST TO BED. INCONTINENT OF BLADDER. BED ALARM SET, BED IN LOW POSITION, WILL CONINTUE TO MONITOR Q 12 MINUTES FOR PATIENT SAFETY.
--- NOTE | 2019-05-06 04:17 | NUR ---
AWAKENED SEVERAL TIMES AND NOTED TO BE SITTING UP ON THE SIDE OF THE BED. GIVEN INCONTINENT CARE AND @ 0400 TRANSFERRED TO THE W/ AND PROPELLED INTO THE DAY ROOM. WILL CONTINUE TO MONITOR FOR PATIENT SAFETY.
[2019-05-06 04:20] VITALS: BP 158/85
[2019-05-06 06:56] LABS: ALBUMIN 3.5 g/dL (3.4-5.0); CALCIUM 9.5 mg/dL (8.5-10.1); CREATININE 1.8 mg/dL (0.6-1.0); POTASSIUM 4.5 mmol/L (3.5-5.1); TOTAL BILIRUBIN 0.3 mg/dL (<0.1-1.0); TOTAL PROTEIN 7.3 g/dL (6.4-8.2)
[2019-05-06 07:05] LABS: HEMATOCRIT 40.6 % (37.0-47.0); HEMOGLOBIN 13.1 gm/dL (12.0-15.0); MCH 30.6 pg (26.0-34.0); MCHC 32.2 g/dL (28.0-37.0); MCV 95.1 fL (80.0-100.0); RBC 4.27 mil/uL (4.20-5.00); RDW 13.8 % (10.5-14.5); WBC 11.3 thou/uL (4.0-11.0)
[2019-05-06 19:06] VITALS: BP 149/79
[2019-05-06 20:04] VITALS: BP 149/79
--- NOTE | 2019-05-06 20:16 | NUR ---
RECEIVED REPORT FROM OFFGOING DAY NURSE. ASSUMED CARE OF PATIENT @ 19:15. SITTING IN A W/C IN THE DAY ROOM, WITH HEAD BOWED AND OPENS EYES TO VOICE. COOPERATES WITH ASSESSMENET, HRRR, LUNGS CTA, ABD NORMOACTIVE X 4 Q. WILL CONTINE TO MONITOR Q 12 MINUTES FOR PATIENT SAFETY.
[2019-05-06 23:45] VITALS: BP 149/79
--- NOTE | 2019-05-07 06:41 | NUR ---
SLEPT 8.4 HOURS
--- NOTE | 2019-05-07 08:00 | NUR ---
PT OUT IN DINNING ROOM AT THIS TIME SITTING IN WHEEL CHAIR. PT SLEEPY, PT NEEDS ASSISTANCE WITH EATING AND DRINKING. NOTICED RT ARM IS SHAKY. PT NON-VERBAL AT THIS TIME. PT LUNGS CLEAR, BOWEL SOUNDS NOTED, WOUND TO RT FOOT. PT NEEDS ASSISTANCE WITH TRANSFERS. PT APPEARS WEAK THIS AM.
[2019-05-07] MEDS ORDERED: ASPIR 8181 MG PO (09:17)
[2019-05-07] MEDS ORDERED: SENNA-TIME S T1 EACH PO (09:18)
[2019-05-07] MEDS ORDERED: CYMBALTA30 MG PO (09:18)
[2019-05-07] MEDS ORDERED: LANTUS100 UNIT/M SUBQ (09:19)
[2019-05-07] MEDS ORDERED: VITCB500GO PO (09:20)
[2019-05-07] MEDS ORDERED: NOVOLOG100 UNIT/1 SUBQ (09:20)
[2019-05-07] MEDS ORDERED: UNICOMPLEX M TA1 TA1 PO (09:21)
[2019-05-07 09:42] VITALS: BP 173/87
--- NOTE | 2019-05-07 09:59 | HC ---
[facility] [place] [address] [place] [address] CONSULTATION Name: DARLING MAYERS Room #: 528B-B ADM IN M.R.#: [id number] Admission: 04/24/19 ������������������ Attend Phys: Twin Haley DO Discharge: ������������������ Date of : 46 Report #: [id number] THIS REPORT FOR: //name// CC: Twin Haley [facility] physician/PCP DATE OF SERVICE: 04/30/2019 INTRODUCTION: The patient is a 73-year-old female being seen in the [facility] for right foot deformity and ulceration. The patient has been admitted with psychosis and is in the process of graduating to rehabilitation. She has a longstanding history of right foot deformity and has recently developed a lateral foot ulceration which is being managed by the wound care specialists at [facility]. Additionally, she has a history of the left lower extremity amputation below the knee and is in the process of being fitted for a new prosthesis. Additional history regarding her right foot and the nature of the amputation are not clear or available to me at this time. PHYSICAL EXAMINATION: EXTREMITIES: Pedal exam, right dorsalis pedis and posterior tibial pulses are graded at 1/4, capillary refill time is within normal limits. NEUROLOGIC: The patient lacks protective threshold to the ankle level. MUSCULOSKELETAL: Reveals a rigid fixed pes cavovarus with profound and maximal subtalar joint inversion. There is prominence of the lateral talar head. The patient essentially walks on the lateral aspect of the cuboid and fifth metatarsal. There is a wound present, which was covered with a protective dressing, it is approximately 1.5 cm in diameter and does not appear to be infected, was relatively superficial. The patient's nails are somewhat dystrophic, but have recently been cared for and not severely long. Footwear, the patient has a very old and deconstructed right shoe apparatus that includes what had been the mechanism for an additional upright brace and an ankle strap attached to the shoe. Shoe is badly deformed and the anterior Plastazote insole is badly worn. IMPRESSION: 1. Pes cavovarus, etiology unknown. 2. Peripheral neuropathy. 3. Neuropathic ulcer, right foot. PLAN: The patient's condition is critical and that rehabilitation will include the application of prosthetic and reliance on her right limb. Currently, she is awaiting meeting with [facility] for evaluation of a new prosthetic for the left lower extremity. Her footwear is entirely inadequate and new. A prescription was written for specialty footwear including Plastazote insole and upright bracing for this right foot. Her long-term wound management will be continued with a internet marketing specialist here at the [place] [address] CONSULTATION Name: DARLING MAYERS Room #: 528B-B ADM IN M.R.#: [id number] Admission: 04/24/19 ������������������ Attend Phys: Twin Haley DO Discharge: ������������������ Date of : 47 Report #: [id number] will be made. It has been a pleasure having the opportunity of meeting with and caring for this patient. We will be pleased to follow up with her upon request. ��������������������������������������������� <ELECTRONICALLY SIGNED> ���������������������������������������� By: Francisco Head DPM ��������������������������������������������� 05/07/19 0959 [id number] 0019 Francisco Head DPM /nt
--- NOTE | 2019-05-07 10:30 | NUR ---
PT BRIEF CHANGED AT THIS TIME. PT HAD SMALL SMEAR OF BM. ALSO CHANGED DRESSING TO RT FOOT. DRESSING WAS PEELED AWAY. CLEANED WITH SALINE AND APPLIED MEPILEX DRESSING.
[2019-05-07 10:44] VITALS: BP 173/87
--- NOTE | 2019-05-07 10:48 | NUR ---
Patient Name: DARLING MAYERS Admission Date: 04/24/19 DISCHARGE PLAN: Pt will be d/c home with . Care Assessment: Pt was assessed by Dr. Haley, and diagnosed with Major Neurocognitive Disorder Level II Assessment: None Transportation: Pt will be transported by her daughter. Special Instructions/Notes: Pt will need placement into [facility], and possible hospice consultation. DISCHARGE TO FACILITY: Facility: Phone: Fax: Address: Contact Name: Phone: PCP: MARJAN Psychiatrist:
[2019-05-07 10:56] VITALS: BP 173/87
--- NOTE | 2019-05-07 11:02 | NUR ---
DAUGHTER HERE AT THIS TIME SEEING PT.
[2019-05-07 11:42] VITALS: BP 173/87
--- NOTE | 2019-05-07 12:01 | NUR ---
PT LEFT WITH DAUGHTER LISA TO [facility] TO BE EVALUATED DUE TO CHRONIC UTI AND NEEDING A UROLOGIST. PT WHEELED OUT IN WHEEL CHAIR. PT DAUGHTER VERBALY UNDERSTOOD D/C ORDERS.
--- NOTE | 2019-05-07 12:02 | NUR ---
BELONGINGS DELIVERED AND ALSO ITEMS IN THE SAFE.
--- NOTE | 2019-05-09 16:44 | D ---
[facility] [place] [address] DISCHARGE SUMMARY Name: DARLING MAYERS Room #: 528B-B DIS IN M.R.#: [id number] Admission: 04/24/19 ������������������ Attend Phys: Twin Haley DO Discharge: 05/07/19 ������������������ Date of : 46 Report #: [id number] THIS REPORT FOR: //name// CC: Twin Haley FAM physician/PCP DATE OF SERVICE: 05/07/2019 INPATIENT PSYCHIATRIC DISCHARGE SUMMARY ATTENDING PHYSICIAN: Twin Haley DO. TIMBER FELLER AT TIME OF DISCHARGE: Twin Mendez MD, especially sap ppm consultant staff development coordinator rn, Yani Horner MD. DISCHARGE DIAGNOSES: Major neurocognitive disorder, likely due to Alzheimer disease with behavioral disturbance. The patient ____ developed a Streptococcus species urinary tract infection and had superimposed delirium as well. Additional medical comorbidities include urinary tract infection, diabetes mellitus type 2, hyperlipidemia, hypertension, acute kidney injury, chronic pain syndrome, left oleyg-hle-pock amputation with presently dysfunctional prosthesis. She also has right foot stage II-III decubitus ulcer. DISCHARGE PLAN: Her daughter who is a DPOA is requesting the patient to be discharged to her care. I have advised against it, but the daughter wants to take the patient for further medical management and perhaps second opinion at [facility]. I discussed with the daughter that I did not expect the [facility] to accept her as an in-hospital transfer. Given the amount of time, she has been at [facility] and the fact that the same services are available here. REASON FOR ADMISSION: As follows: A 73-year-old female reported confusion, agitation taking swings at staff member in a senior care setting at [facility]. HOSPITAL COURSE: The patient was admitted to the [facility]. Regarding her progress here, there was initial treatment with some haloperidol, then the patient developed nain, which I felt may be due to the bupropion, dose of duloxetine she is on, so I eliminated the bupropion and reduced the duloxetine. The patient's nain resolved. Then towards the last 3-4 days, the patient developed unusual delirium where she obeyed directional commands, but nonverbal. She displayed somnolent during the day. According to her family, this had occurred before. During the family meeting, we met with her as well. The patient's is unable to care for her new assisted living setting, recommended memory care placement. [address] [address] DISCHARGE SUMMARY Name: DARLING MAYERS Room #: 528B-B [facility] IN M.R.#: [id number] Admission: 04/24/19 ������������������ Attend Phys: Twin Haley, Discharge: 05/07/19 ������������������ Date of : 47 Report #: [id number] DISCHARGE MEDICATIONS: As follows: Aspirin 81 mg p.o. daily, duloxetine 30 mg p.o. daily, senna-S 2 tabs p.o. b.i.d., insulin glargine 26 units subQ at bedtime, insulin aspart 10 units subQ with meals, ascorbic acid 500 mg p.o. b.i.d. for wound healing, multivitamin 1 tab p.o. daily. No fexofenadine, that was the only stopped medication, I had note of. LABORATORY DATA: Most recent labs on 05/06/2019, white count of 7.3, H and H 13.1 and 40.6, platelet count 444. Chemistries showed sodium 133, potassium 4.5, chloride 96, bicarbonate 29, BUN 40, creatinine 1.8. It should be noted her normal creatinine for her is 1.6. Estimated average glucose of 154, Hemoglobin A1c of 7, calcium 9.5, phosphorus 4.4, magnesium 2.0, AST 31, ALT 30, alkaline phosphatase 174. B12 level 747. Vitamin D 30.9, these all within normal limits. TSH 1.651. Most recent urinalysis had several positives including 1-9 bacteria, 3+ leukocyte esterase, greater than 25 leukocytes, 2+ blood. Urine culture at this time is showing Streptococcus species sensitivity. Final identification is not back. PHYSICAL EXAMINATION: VITAL SIGNS: On the day of discharge, temperature 36.5, pulse wnl, respirations 16, BP 172/87, O2 sat 97%. GENERAL: She is seated in wheelchair, kyphotic, is eating her meals. MENTAL STATUS EXAMINATION: This is a well-developed, disheveled female, appearing older than stated age. Attention impaired. Concentration impaired. Speech nonverbal. mood- undopecified, affect-constrcited Unable to make further comments about thought process, was not behaving in a self-injurious way. Memory unable to be tested. Insight impaired. Judgment impaired. Fund of knowledge generally no greater than average rather below average. PROGNOSIS: For this patient is guarded to poor given the advanced nature of her dementia, the repeated UTIs with delirium. ��������������������������������������������� <ELECTRONICALLY SIGNED> ���������������������������������������� By: Twin Haley DO ��������������������������������������������� 05/09/19 1644 20 [id number] Twin Haley DO /nt
== END 2019-05-07 12:00 | disposition home or self-care (01) | DRG 57 ==
LOC: SBH 19:24
PROVIDERS: Hospitalist; Internal Medicine; Psychiatry & Neurology Psychiatry; ADMIT Psychiatry & Neurology Psychiatry
DX: G30.9 Alzheimer's disease, unspecified (principal); N39.0 Urinary tract infection, site not specified; N17.9 Acute kidney failure, unspecified; F02.81 Dementia in other diseases classified elsewhere, unspecified severity, with behavioral disturbance; F01.51 Vascular dementia, unspecified severity, with behavioral disturbance; F05 Delirium due to known physiological condition; F32.9 Major depressive disorder, single episode, unspecified; F29 Unspecified psychosis not due to a substance or known physiological condition; N18.3 Chronic kidney disease, stage 3 (moderate); I12.9 Hypertensive chronic kidney disease with stage 1 through stage 4 chronic kidney disease, or unspecified chronic kidney disease; E11.42 Type 2 diabetes mellitus with diabetic polyneuropathy; L97.519 Non-pressure chronic ulcer of other part of right foot with unspecified severity; E11.22 Type 2 diabetes mellitus with diabetic chronic kidney disease; F41.9 Anxiety disorder, unspecified; E55.9 Vitamin D deficiency, unspecified; E11.51 Type 2 diabetes mellitus with diabetic peripheral angiopathy without gangrene; E78.5 Hyperlipidemia, unspecified; E11.65 Type 2 diabetes mellitus with hyperglycemia; G89.4 Chronic pain syndrome; Z89.511 Acquired absence of right leg below knee; Q66.1 Congenital talipes calcaneovarus; Z88.1 Allergy status to other antibiotic agents; Z88.8 Allergy status to other drugs, medicaments and biological substances; Z89.612 Acquired absence of left leg above knee; Z79.82 Long term (current) use of aspirin; Z79.899 Other long term (current) drug therapy
CPT/HCPCS: 10880